=== PATIENT | female | born 2000 | race Caucasian/White ===

== ENCOUNTER 2018-11-16 10:59 | Emergency (ER) | payer BC, OTHER ==
[~2018-11-16] VITALS: Ht 172.7 cm; Wt 65.8 kg
[2018-11-16] MEDS ORDERED: IOHEXOL 350 MG/ML 100 ML (OMNIPAQUE 350) VIAL IV ONE (12:15)
[2018-11-16] MEDS ORDERED: RECEIVED CONTRAST (Hold Metformin) IV SCH (12:15)
[2018-11-16] MEDS ORDERED: NS 100 ML (IVPB) BAG IV ONE (12:15)
[2018-11-16 12:31] LABS: BASOPHILS % (AUTO) 0 % (0-10); EOSINOPHILS % (AUTO) 1 % (0-10); HEMATOCRIT 41 % (35-52); HEMOGLOBIN 13.7 G/DL (11.5-16.0); LYMPHOCYTES % (AUTO) 27 % (12-44); MEAN CORPUSCULAR HEMOGLOBIN 29 PG (25-34); MEAN CORPUSCULAR HGB CONC 33 G/DL (32-36); MEAN CORPUSCULAR VOLUME 86 FL (80-99); MEAN PLATELET VOLUME 11.4 FL (7.4-10.4); MONOCYTES # (AUTO) 0.3 X 10^3 (0.0-1.0); MONOCYTES % (AUTO) 4 % (0-12); NEUTROPHILS # (AUTO) 5.1 X 10^3 (1.8-7.8); NEUTROPHILS % (AUTO) 68 % (42-75); PLATELET COUNT 301 10^3/uL (130-400); RED BLOOD COUNT 4.79 10^6/uL (4.35-5.85); RED CELL DISTRIBUTION WIDTH 12.4 % (10.0-14.5); WHITE BLOOD COUNT 7.4 10^3/uL (4.3-11.0)
[2018-11-16 12:32] LABS: BILIRUBIN,URINE NEGATIVE (NEGATIVE); CLARITY,URINE VERY CLOUDY; COLOR,URINE YELLOW; GLUCOSE, URINE (UA) NEGATIVE (NEGATIVE); KETONES,URINE NEGATIVE (NEGATIVE); LEUKOCYTE ESTERASE ,URINE 1+ (NEGATIVE); NITRITE,URINE NEGATIVE (NEGATIVE); PH,URINE 6 (5-9); PROTEIN,URINE 2+ (NEGATIVE); UROBILINOGEN,URINE 1 MG/DL (NORMAL)
[2018-11-16 12:41] LABS: BACTERIA,URINE LARGE /HPF; WBC,URINE 0-2 /HPF
--- NOTE | 2018-11-16 12:47 | ED Abdominal Pain ---
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 WENT TO THE DR WHO TOLD HER TO GO TO ER AT [facility] FOR A CT SCAN. PT STATES THEY DID BLOOD AND URINE. Sepsis Screen: No Definite Risk Source of Information: Patient Exam Limitations: No Limitations History of Present Illness Date Seen by Provider: Nov 16, 2018 Time Seen by Provider: 12:45 Initial Comments To ER with reports of right lower quadrant abdominal pain sharp for the past 36 hours. She went to the her primary care provider who suggested either appendicitis or an ovarian cyst. She is on control and has no history of ovarian cysts. He advised her to go to the emergency room to have a CT scan done. She states that she went to the emergency room in her hometown in [facility] and they did blood work but did not do a CT scan. Her pain persists and she is here today for this reason. No fevers. She has had diarrhea and loose stools for the past several days. She took Imodium last night which helped. No vomiting. Timing/Duration: 1-2 Days Severity/Quality: Severe Location: RLQ Radiation: No Radiation Activities at Onset: None Allergies and Home Medications Allergies Coded Allergies: No Known Drug Allergies (Unverified , 11/16/18) Patient Home Medication List Home Medication List Reviewed: Yes Review of Systems Review of Systems Constitutional: see HPI EENTM: No Symptoms Reported Respiratory: No Symptoms Reported Cardiovascular: No Symptoms Reported Gastrointestinal: See HPI, Abdominal Pain, Diarrhea; Denies Nausea, Denies Vomiting Genitourinary: No Symptoms Reported Musculoskeletal: no symptoms reported Skin: no symptoms reported Psychiatric/Neurological: No Symptoms Reported Endocrine: No Symptoms Reported Past Ssqqxhc-Nanmuy-Fgduaz Hx Patient Social History Alcohol Use: Denies Use Recreational Drug Use: Yes Drug of Choice: marijuana Smoking Status: Never a Smoker Recent Foreign Travel: No Contact w/Someone Who Travel: No Recent Infectious Disease Expo: No Immunizations Up To Date Tetanus Booster (TDap): Unknown PED Vaccines UTD: Yes Past Medical History : No (NEG PREG TEST YESTERDAY. ) Physical Exam Vital Signs Vital Signs - First Documented 11/16/18 11:28 Temp 98.6 Pulse 78 Resp 16 B/P (MAP) 140/92 (108) Pulse Ox 98 O2 Delivery Room Air Capillary Refill : Less Than 3 Seconds Height/Weight/BMI Height: 5'8.00" Weight: 145lbs. oz. 65.192423qc; BMI Method:Stated General Appearance: WD/WN, no apparent distress HEENT: PERRL/EOMI, normal ENT inspection Respiratory: normal breath sounds, no respiratory distress, no accessory muscle use Cardiovascular: regular rate, rhythm, no murmur Gastrointestinal: normal bowel sounds, soft, tenderness (right lower quadrant) Extremities: normal range of motion, non-tender Neurologic/Psychiatric: alert, normal mood/affect, oriented x 3 Skin: normal color, warm/dry Progress/Results/Core Measures Results/Orders Lab Results Laboratory Tests Test 11/16/18 12:23 Range/Units White Blood Count 7.4 4.3-11.0 10^3/uL Red Blood Count 4.79 4.35-5.85 10^6/uL Hemoglobin 13.7 11.5-16.0 G/DL Hematocrit 41 35-52 % Mean Corpuscular Volume 86 80-99 FL Mean Corpuscular Hemoglobin 29 25-34 PG Mean Corpuscular Hemoglobin Concent 33 32-36 G/DL Red Cell Distribution Width 12.4 10.0-14.5 % Platelet Count 301 130-400 10^3/uL Mean Platelet Volume 11.4 H 7.4-10.4 FL Neutrophils (%) (Auto) 68 42-75 % Lymphocytes (%) (Auto) 27 12-44 % Monocytes (%) (Auto) 4 0-12 % Eosinophils (%) (Auto) 1 0-10 % Basophils (%) (Auto) 0 0-10 % Neutrophils # (Auto) 5.1 1.8-7.8 X 10^3 Lymphocytes # (Auto) 2.0 1.0-4.0 X 10^3 Monocytes # (Auto) 0.3 0.0-1.0 X 10^3 Eosinophils # (Auto) 0.0 0.0-0.3 10^3/uL Basophils # (Auto) 0.0 0.0-0.1 10^3/uL Urine Color YELLOW Urine Clarity VERY CLOUDY H Urine pH 6 5-9 Urine Specific Eva 1.020 1.016-1.022 Urine Protein 2+ H NEGATIVE Urine Glucose (UA) NEGATIVE NEGATIVE Urine Ketones NEGATIVE NEGATIVE Urine Nitrite NEGATIVE NEGATIVE Urine Bilirubin NEGATIVE NEGATIVE Urine Urobilinogen 1 NORMAL MG/DL Urine Leukocyte Esterase 1+ H NEGATIVE Urine RBC (Auto) NEGATIVE NEGATIVE Urine RBC NONE /HPF Urine WBC 0-2 /HPF Urine Squamous Epithelial Cells 5-10 /HPF Urine Crystals NONE /LPF Urine Bacteria LARGE H /HPF Urine Casts NONE /LPF Urine Mucus LARGE H /LPF Urine Culture Indicated NO Sodium Level 138 135-145 MMOL/L Potassium Level 3.3 L 3.6-5.0 MMOL/L Chloride Level 101 98-107 MMOL/L Carbon Dioxide Level 25 21-32 MMOL/L Anion Gap 12 5-14 MMOL/L Blood Urea Nitrogen 10 7-18 MG/DL Creatinine 0.76 0.60-1.30 MG/DL Estimat Glomerular Filtration Rate > 60 BUN/Creatinine Ratio 13 Glucose Level 95 70-105 MG/DL Calcium Level 9.9 8.5-10.1 MG/DL Corrected Calcium 8.5-10.1 MG/DL Total Bilirubin 0.7 0.1-1.0 MG/DL Aspartate Amino Transf (AST/SGOT) 17 5-34 U/L Alanine Aminotransferase (ALT/SGPT) 16 0-55 U/L Alkaline Phosphatase 48 40-136 U/L Total Protein 8.4 H 6.4-8.2 GM/DL Albumin 5.0 H 3.2-4.5 GM/DL Serum Test, Qualitative NEGATIVE NEGATIVE My Orders Orders - SHAWN BARRIENTOS APRN Cbc With Automated Diff (11/16/18 11:52) Comprehensive Metabolic Panel (11/16/18 11:52) Ua Culture If Indicated (11/16/18 11:52) Hcg,Qualitative Serum (11/16/18 11:52) Iv Heplock-Insert (Order) (11/16/18 11:52) Ct Abd/Pelv W (Appendicitis) (11/16/18 11:52) Medications Given in ED Current Medications Medications Dose Ordered Sig/Demetria Route Start Time Stop Time Status Last Admin Dose Admin Iohexol 75 ml ONCE ONCE IV 11/16/18 12:15 11/16/18 12:19 DC 11/16/18 12:53 75 ML Sodium Chloride 100 ml ONCE ONCE IV 11/16/18 12:15 11/16/18 12:19 DC 11/16/18 12:53 80 ML Vital Signs/I&O 11/16/18 11:28 Temp 98.6 Pulse 78 Resp 16 B/P (MAP) 140/92 (108) Pulse Ox 98 O2 Delivery Room Air Blood Pressure Mean: 108 Urine -Bedside: Negative Diagnostic Imaging Diagonstic Imaging: CT Comments NAME: KWABENA BURRELL [employer] REC#: [id number] PT STATUS: REG ER : 2000 PHYSICIAN: SHAWN BARRIENTOS DORMITORY MAID ADMIT DATE: 11/16/18/ER Draft Date of Exam:11/16/18 CT ABD/PELV W (APPENDICITIS) PROCEDURE: CT abdomen and pelvis with contrast, rule out appendicitis. TECHNIQUE: Multiple contiguous axial images were obtained through the abdomen and pelvis after the administration of intravenous contrast. INDICATION: Lower abdominal pain. COMPARISON: None. FINDINGS: The lung bases are clear. The heart is normal in size. The liver demonstrates no focal lesions. The spleen appears normal. The pancreas is normal. The adrenal glands appear normal. The kidneys are unremarkable. There is no hydronephrosis. The appendix measures 6 mm in diameter, with no significant periappendiceal fat stranding seen. There is a small amount of fluid in the pelvis. There appear to be bilateral ovarian follicles with no large cysts seen. The bowel loops are nondistended without obstruction. No bowel wall thickening is seen. No acute osseous abnormalities seen. IMPRESSION: 1. No appendicitis. No pelvic masses or large cysts seen. 2. Small amount of free fluid in the pelvis, likely physiologic. Dictated on workstation # [id number] Dict: 11/16/18 1303 Trans: 11/16/18 1309 [id number] Interpreted by: ALEXUS MCCORMICK MD Electronically signed by: Departure Impression Primary Impression: Right lower quadrant abdominal pain Disposition: HOME, SELF-CARE Condition: Stable Departure-Patient Inst. Decision time for Depature: 13:13 Add. Discharge Instructions: 1. There is a small amount of fluid in the pelvis may represent a recently ruptured ovarian cyst. Treatment for this is just time and pain control. I'll prescribe some pain medication to take as needed. Return to ER for any worsening symptoms such as fevers or intolerable pain. Follow up with [facility] or your primary care doctor next week for recheck. Scripts Hydrocodone/Acetaminophen ([place] 5-325 Tablet) 1 Each Tablet 1 EACH PO Q6H PRN for PAIN-MODERATE MDD 10, #5 TAB Prov: SHAWN BARRIENTOS APRN 11/16/18 Work/School Note: Work Release Form Date Seen in the Emergency Department: Nov 16, 2018 Return to Work: Nov 17, 2018 SHAWN BARRIENTOS APRN Nov 16, 2018 12:47
[2018-11-16 12:50] LABS: ALANINE AMINOTRANSFERASE 16 U/L (0-55); ALKALINE PHOSPHATASE 48 U/L (40-136); BILIRUBIN,TOTAL 0.7 MG/DL (0.1-1.0); BUN/CREATININE RATIO 13; CALCIUM 9.9 MG/DL (8.5-10.1); CARBON DIOXIDE 25 MMOL/L (21-32); CHLORIDE 101 MMOL/L (98-107); CREATININE SERUM 0.76 MG/DL (0.60-1.30); GFR ESTIMATED > 60; GLUCOSE 95 MG/DL (70-105); POTASSIUM 3.3 MMOL/L (3.6-5.0); SODIUM 138 MMOL/L (135-145); TOTAL PROTEIN 8.4 GM/DL (6.4-8.2)
--- OUTSIDE RECORDS SUMMARY | 2018-11-16 13:08 | XMS REPORT ---
Author Author SAIGE CARTER Organization [employer] Address Unknown Phone Unavailable Care Team Providers Care Pharmacy Order Entry Technician Name Role Phone SAIGE CARTER CP Unavailable Allergies, Adverse Reactions, Alerts Substance Reaction Event Type N.K.D.A. Info Not Available Non Drug Allergy Problems Problem Type Condition Code Onset Dates Condition Status Problem Abdominal pain, generalized 789.07 Active Problem Nausea alone 787.02 Active Problem Acute bronchitis 466.0 Active Assessment Sore throat J02.9 Active Problem Unspecified constipation 564.00 Active Assessment Upper respiratory infection 465.9 Active Medications Medication Code System Code Instructions Start Date End Date Status Dosage Zithromax Tri-Christian [facility] [address]-62 500 MG Orally Once a day Jun 28, 2016 1 TAB Sudafed 12 Hour [facility] [address]-17 120 MG Orally every 12 hrs, PRN April 13, 2015 1 tablet as needed Flonase Allergy Relief [facility] [address]-24 50 MCG/ACT Nasally 2 times a day April 13, 2015 1 spray in each nostril TriNessa (28) [facility] [address]-59 0.18/0.215/0.25 MG-35 MCG Orally Once a day 1 tablet Procedures Procedure Coding System Code Date Office Visit, Est Pt., Level 3 CPT-4 10866 Jun 25, 2016 STREP A ASSAY W/OPTIC CPT-4 67091 Jun 25, 2016 Vital Signs Date/Time: Jun 25, 2016 Cardiac Monitoring Heart Rate 68 bpm Weight 135.2 lbs Height 67 in Ht Percentile 86.28 % BMI 21.17 Index Blood Pressure Diastolic 68 mmHg Blood Pressure Systolic 120 mmHg BMIPercentile 49.18 % Wt Percentile 69.59 % Results No Known Results Summary Purpose [employer] Submission
--- OUTSIDE RECORDS SUMMARY | 2018-11-16 13:08 | XMS REPORT ---
Author Author [facility]ORN LOPEZ [facility] Address [address] [place] [address] Care Team Providers Care Education Professor Name Role Phone BJORN LOPEZ Unavailable PROBLEMS Type Condition ICD9-CM Code [id number] Code Onset Dates Condition Status SNOMED Code Problem Contact dermatitis due to detergent, unspecified contact dermatitis type L24.0 Active 66437592 Problem Acute bronchitis 466.0 Active 14616450 Problem Abdominal pain, generalized 789.07 Active 308017725 Problem Unspecified constipation 564.00 Active 79304621 Problem Nausea alone 787.02 Active 527348250 ALLERGIES No Information SOCIAL HISTORY Never Assessed PLAN OF CARE Activity Details Follow Up prn Reason: VITAL SIGNS MEDICATIONS Unknown Medications RESULTS No Results PROCEDURES Procedure Date Ordered Result Body Site GARDISIL 9 March 21, 2017 SINGLE IMMUNIZATION ADMIN March 21, 2017 IMMUNIZATIONS Vaccine Route Administration Date Status GARDASIL 9 IM Intramuscular March 21, 2017 Administered
--- OUTSIDE RECORDS SUMMARY | 2018-11-16 13:08 | XMS REPORT ---
Author Author BJORN LOPEZ Organization [facility] Address [address] [place] [address] Care Team Providers Care Eyewear Manufacturing Supervisor Name Role Phone BJORN LOPEZ Unavailable PROBLEMS Type Condition ICD9-CM Code [id number] Code Onset Dates Condition Status SNOMED Code Problem Contact dermatitis due to detergent, unspecified contact dermatitis type L24.0 Active 67939660 Problem Acute bronchitis 466.0 Active 05575985 Problem Abdominal pain, generalized 789.07 Active 597938791 Problem Unspecified constipation 564.00 Active 33000794 Problem Nausea alone 787.02 Active 443427994 ALLERGIES No Known Allergies ENCOUNTERS Encounter Location Date Diagnosis [facility] [address] [place] [address] [place] [phone] Aug, Encounter for surveillance of contraceptive pills Z30.41 and Encounter for immunization Z23 [facility] [place] [address] [place] [phone] Aug, Encounter for immunization Z23 [facility] [place] [address] [place] [phone] Jul, Encounter for immunization Z23 [facility] [address] [address] March, Encounter for [facility] [address] [place] [phone] Dec, Encounter for immunization Z23 [facility] [place] [address] [place] [phone] Aug, Contact dermatitis due to detergent, unspecified contact dermatitis type L24.[address] [facility] [address] [address] Jun, Upper respiratory infection 465.9 and Sore throat J02.[address] [facility] [address] [address] Apr, Allergic rhinitis 477.9 [facility] [address], [place] [address] Jan, [facility] [address] [address] Jan, [facility] [place] [address] [place] [address] Aug, [facility] [address] [place] [place] [id number] [place] [phone] Aug, [facility] [place] [address] [place] [address] Jul, [facility] [id number] [place] [address] Jul, [facility] [place] [address] [place] [address] Jan, [place] [id number] [place] [address] Jan, IMMUNIZATIONS Vaccine Route Administration Date Status FLULAVAL QUAD 0.5ML (6 MO & UP) 2018 IM Intramuscular Aug 04, 2018 Administered SOCIAL HISTORY Never Assessed REASON FOR VISIT control consult-amorrisonlpn PLAN OF CARE Activity Details Follow Up prn, 1 Year Reason: VITAL SIGNS Height 67 in 2018-08-04 Weight 146.7 lbs 2018-08-04 Temperature 97.7 degrees Fahrenheit 2018-08-04 Heart Rate 69 bpm 2018-08-04 Respiratory Rate 16 2018-08-04 BMI 22.97 kg/m2 2018-08-04 Blood pressure systolic 126 mmHg 2018-08-04 Blood pressure diastolic 85 mmHg 2018-08-04 MEDICATIONS Medication Instructions Dosage Frequency Start Date End Date Duration Status Leisaessa (28) 0.18/0.215/0.25 mg-35 mcg Orally Once a day 1 tablet 24h Active RESULTS Name Result Date Reference Range TEST, URINE (IN HOUSE) 2018-08-04 RESULTS NEG Lot # [id number] Control +/- Exp date 03/01/2020 PROCEDURES Procedure Date Ordered Result Body Site URINE TEST Aug 04, 2018 SINGLE IMMUNIZATION ADMIN Aug 04, 2018 FLULAVAL QUAD 0.5ML (6 MO AND UP) 2017Aug 04, 2018 INSTRUCTIONS MEDICATIONS ADMINISTERED No Known Medications MEDICAL (GENERAL) HISTORY Type Description Date Surgical History No know Surgical history
--- OUTSIDE RECORDS SUMMARY | 2018-11-16 13:08 | XMS REPORT ---
Author Author EMMA SIMONS Organization [employer] Address Unknown Phone Unavailable Care Team Providers Care Sales Team Leader Name Role Phone EMMA SIMONS CP Unavailable Allergies, Adverse Reactions, Alerts Substance Reaction Event Type N.K.D.A. Info Not Available Non Drug Allergy Problems Problem Type Condition Code Onset Dates Condition Status Problem Acute bronchitis 466.0 Active Problem Abdominal pain, generalized 789.07 Active Problem Contact dermatitis due to detergent, unspecified contact dermatitis type L24.0 Active Assessment Contact dermatitis due to detergent, unspecified contact dermatitis type L24.0 Active Problem Nausea alone 787.02 Active Problem Unspecified constipation 564.00 Active Medications Medication Code System Code Instructions Start Date End Date Status Dosage TriNessa (28) [facility] [address]-22 0.18/0.215/0.25 MG-35 MCG Orally Once a day 1 tablet Loratadine [facility] [address]-21 10 mg Orally Once a day Aug 05, 2016 1 tablet Procedures Procedure Coding System Code Date Office Visit, Est Pt., Level 3 CPT-4 12950 Aug 05, 2016 Vital Signs Date/Time: Aug 05, 2016 Cardiac Monitoring Heart Rate 84 bpm Weight 137.0 lbs Height 67 in Wt Percentile 71.67 % BMI 21.45 Index Blood Pressure Diastolic 72 mmHg Blood Pressure Systolic 110 mmHg BMIPercentile 52.36 % Results No Known Results Summary Purpose [employer]Clinical[employer] Submission
--- OUTSIDE RECORDS SUMMARY | 2018-11-16 13:09 | XMS REPORT ---
Author Author BJORN LOPEZ Organization [facility] [place] Address [address] [place] [address] Care Team Providers Care Program Proposals Coordinator Name Role Phone BJORN LOPEZ Unavailable PROBLEMS Type Condition ICD9-CM Code XEV84-RL Code Onset Dates Condition Status SNOMED Code Problem Contact dermatitis due to detergent, unspecified contact dermatitis type L24.0 Active 85503895 Problem Acute bronchitis 466.0 Active 35903964 Problem Abdominal pain, generalized 789.07 Active 571609632 Problem Unspecified constipation 564.00 Active 22449158 Problem Nausea alone 787.02 Active 830515961 ALLERGIES No Information ENCOUNTERS Encounter Location Date Diagnosis [facility] [place] [address] [place] [address] C [id number] [place] [phone] Aug, Encounter for immunization Z23 [facility] [place] [address] [place] [address] C [id number] [place] [id number] Jul, Encounter for immunization Z23 [facility] [place] [address] [place] [address] C [id number] [place] [phone] March, Encounter for immunization Z23 [facility] [place] [address] [place] [address] C [id number] [place] [phone] Dec, Encounter for immunization Z23 [facility] [place] [address] [place] [address] C [id number] [place] [phone] Aug, Contact dermatitis due to detergent, unspecified contact dermatitis type L24.0 [facility] [place] [address] [place] [address] C [id number] [place] [phone] Jun, Upper respiratory infection 465.9 and Sore throat J02.9 [facility] [place] [address] [place] [address] C [id number] [place] [phone] Apr, Allergic rhinitis 477.9 [facility] [address] [facility] [id number] [place] [phone] Jan, [facility] [address] [facility] [id number] [place] [address] Jan, [facility] [place] [address] [id number] [place] [phone] Aug, [facility] [address] [id number] [place] [address] Aug, [facility] [place] [address] [id number] [facility] [place] [phone] Jul, [facility] [address] [id number] [place] [address] Jul, [facility] [place] [address] [facility] [address] [id number] [facility] [place] [phone] Jan, [facility] [address] [facility] [id number] [place] [address] Jan, IMMUNIZATIONS Vaccine Route Administration Date Status GARDASIL 9 IM Intramuscular Jul 22, 2017 Administered BEXSERO (MEN B) IM Intramuscular Jul 22, 2017 Administered HEP A (ADULT) IM Intramuscular Jul 22, 2017 Administered SOCIAL HISTORY Never Assessed REASON FOR VISIT gardisil shot, Clsmith PLAN OF CARE Activity Details Follow Up prn Reason: VITAL SIGNS MEDICATIONS Unknown Medications RESULTS No Results PROCEDURES Procedure Date Ordered Result Body Site HEP A (ADULT) Jul 22, 2017 GARDISIL 9 Jul 22, 2017 SINGLE IMMUNIZATION ADMIN Jul 22, 2017 BEXSERO (MEN B) Jul 22, 2017 IMMUNIZATION ADMIN, EACH ADD (please include units) Jul 22, 2017 INSTRUCTIONS MEDICATIONS ADMINISTERED No Known Medications
--- NOTE | 2018-11-16 13:10 | Diagnostic Imaging Report ---
PROCEDURE: CT abdomen and pelvis with contrast, rule out appendicitis. TECHNIQUE: Multiple contiguous axial images were obtained through the abdomen and pelvis after the administration of intravenous contrast. INDICATION: Lower abdominal pain. COMPARISON: None. FINDINGS: The lung bases are clear. The heart is normal in size. The liver demonstrates no focal lesions. The spleen appears normal. The pancreas is normal. The adrenal glands appear normal. The kidneys are unremarkable. There is no hydronephrosis. The appendix measures 6 mm in diameter, with no significant periappendiceal fat stranding seen. There is a small amount of fluid in the pelvis. There appear to be bilateral ovarian follicles with no large cysts seen. The bowel loops are nondistended without obstruction. No bowel wall thickening is seen. No acute osseous abnormalities seen. IMPRESSION: 1. No appendicitis. No pelvic masses or large cysts seen. 2. Small amount of free fluid in the pelvis, likely physiologic. Dictated by: Dictated on workstation # [id number]
--- OUTSIDE RECORDS SUMMARY | 2018-11-16 13:12 | XMS REPORT | CCD ---
Author Author JULIA RICHARDSON Organization Unknown Address [address] [facility] [address] [place], [place] [phone] Care Team Providers Care Palletizer Name Role Phone RODRIGUEZ DUPREE, DANIELLE Jimenez Attphyjamel DANIELLE FRIAS MD Vital Signs Unknown. Allergies Allergy Code Allergy Type Reaction Status NO KNOWN DRUG ALLERGIES - NKDA 0 Drug allergy (disorder) Active Procedures Unknown. History of Immunizations Unknown. Problems Unknown. Results Unknown. Medications Unknown. Medications Administered Unknown. Encounters Encounter Diagnosis Diagnosis Code Start Date DISLOCAT PATELLA-CLOSED 8363 03/16/2014 Social History Smoking Status Code Start Date End Date Unknown if ever smoked [id number] Patient Decision Aids Unknown. Instructions You were admitted to [facility] on 03/16/2014 with a principle diagnosis of DISLOCAT PATELLA-CLOSED. You were discharged from [facility] on 03/16/2014. Should you have any questions prior to discharge, please contact a member of your healthcare team. If you have left the hospital and have any questions, please contact your primary care physician. Chief Complaint and Reason For Visit Chief Complaint Date of Onset RIGHT KNEE INJURY Function Status Unknown. Referral/Transition of Care Unknown.
--- OUTSIDE RECORDS SUMMARY | 2018-11-16 13:12 | XMS REPORT | Continuity of Care Document ---
Author Author [facility] Address Unknown Phone Unavailable Allergies There is no data. Medications There is no data. Problems Date Dx Coded Attending Type Code Diagnosis Diagnosed By 02/28/2014 EMMA SIMONS MD 564.00 CONSTIPATION 02/28/2014 EMMA SIMONS MD 787.02 NAUSEA ALONE 02/28/2014 EMMA SIMONS MD 789.07 ABDOMINAL PAIN GENERALIZED 02/28/2014 EMMA SIMONS MD 564.00 CONSTIPATION 02/28/2014 EMMA SIMONS MD 787.02 NAUSEA ALONE 02/28/2014 EMMA SIMONS MD 789.07 ABDOMINAL PAIN GENERALIZED 07/28/2014 EMMA SIMONS MD 466.0 BRONCHITIS, ACUTE 08/02/2014 EMMA SIMONS MD 466.0 ACUTE BRONCHITIS Procedures There is no data. Results There is no data. Encounters ACCT No. Visit Date/Time Discharge Status Pt. Type Provider Facility Loc./Unit Complaint [id number] 08/02/2014 15:22:00 08/02/2014 23:59:59 CLS Outpatient EMAM SIMONS MD [id number] 02/28/2014 15:59:00 02/28/2014 23:59:59 [place] [id number] 11/15/2018 12:00:00 ACT Outpatient BJORN LOPEZ PA-C [facility] [address] [place]
[2018-11-16] MEDS ORDERED: HYDR-4226 PO (13:14)
[2018-11-16 13:30] VITALS: BP 140/92
== END 2018-11-16 13:30 | disposition home or self-care (01) ==
LOC: ER 11:00
DX: R10.31 Right lower quadrant pain (principal); F12.10 Cannabis abuse, uncomplicated; Z87.19 Personal history of other diseases of the digestive system; Z87.448 Personal history of other diseases of urinary system
CPT/HCPCS: 36415; 74177; 80053; 81000; 84703; 85025